=== PATIENT | female | born 1935 | race Asian ===

== ENCOUNTER → 2023-11-28 15:01 | Outpatient (REF) | payer OTHER, SELFPAY | LOC: HWRAD 15:01 | PROVIDERS: ATTENDING PHYSICIAN Nurse Practitioner Gerontology | DX: R91.1 Solitary pulmonary nodule (principal) | CPT/HCPCS: 71250 ==

== ENCOUNTER 2024-02-18 09:41 | Emergency (ER) | payer OTHER, SELFPAY ==
[2024-02-18 09:44] VITALS: BP 152/71; BMI 26.5
[2024-02-18 10:00] VITALS: BP 120/57
--- NOTE | 2024-02-18 10:07 | ED.GENMED ---
History of Present Illness
General
Chief Complaint: Fall
Time Seen by Provider: 02/18/24 09:42
Travel History
Have you had any contact with someone who has COVID-19?: No
Do you have any symptoms of coronavirus? Fever > 100 degrees, chills, cough, shortness of breath, sore throat, loss of taste or smell, muscle aches, or headache?: No
History of Present Illness
History of Present Illness:
88-year-old female presents to the emergency department via EMS from [place] for evaluation of a witnessed fall that occurred while at her dining table. She attempted to stand and lost her balance, fell to the ground and landed on her buttocks. No
reported head strike by staff. Patient reports bilateral hip pain at this time. She states she was unable to walk after this occurred she is not on anticoagulants
Past History
Past History
ED Past Medical History: GERD and HTN
ED Past Surgical History: Orthopedic and Other
Social History
Tobacco: Non-smoker
Alcohol: None
Drug: None
Personal:
Living: with family
Employment: Retired
Family History
Family History: Other (Noncontributory)
Review of Systems
Review of Systems
Allergies reviewed?: Yes
All Other Systems: ROS reviewed and negative except as documented in HPI and ROS
Phy Exam
Physical Exam
Physical Exam:
GEN: Well appearing, NAD, WDWN
HEENT: Oral mucosa moist, no scleral icterus, no nasal congestion
Cardiac: Regular rate
Lung: No respiratory distress, no tachypnea
MSK: No gross deformity or injuries. Mild tenderness to bilateral hips, normal range of motion bilaterally
Skin: Good color, no pallor or jaundice, no rashes
Neuro: AO x3; CN II-XII grossly intact. BUE strength 5/5 in all tran, sensation intact and symmetric. BLE strength 5/5 in all tran, sensation intact and symmetric
Psych: Calm, cooperative
Course
Orders/Labs/Results
Orders:
Orders
02/18/24 09:46
CR Hips KATHARINA w/wo Pel Min 5 Vw* Urgent
Reason For Exam: fall bilat hip pain
Include a pelvis x-ray?: Yes
02/18/24 09:52
Complete Blood Count/With Diff Urgent
Comprehensive Metabolic Panel Urgent
02/18/24 12:07
CT Head W/o Iv Contrast Urgent
Comment:
Reason For Exam: fall head strike
Abnormal Lab Results
02/18/24
09:52
RBC 3.81 L 10^6/uL
(4.20-5.40)
Hgb 10.9 L g/dL
(12.0-16.0)
Hct 32.6 L %
(37.0-47.0)
RDW 14.6 H %
(11.5-14.5)
Chloride 110 H mmol/L
(98-107)
BUN 26 H mg/dl
(7-17)
Creatinine 1.4 H mg/dL
(0.6-1.0)
02/18/24 09:52
02/18/24 09:52
Vital Signs
Initial and Last Documented VS:
Initial Vital Signs
Temp Pulse Resp BP Pulse Ox
97.6 F 79 22 152/71 98
02/18/24 09:44 02/18/24 09:44 02/18/24 09:44 02/18/24 09:44 02/18/24 09:44
Last Documented Vital Signs
Temp Pulse Resp BP Pulse Ox
97.6 F 67 18 120/55 97
02/18/24 09:44 02/18/24 11:15 02/18/24 11:15 02/18/24 11:00 02/18/24 11:15
MDM/Problems Addressed
MDM/Problems Addressed:
Imaging reveals no evidence of fracture of the hip or pelvis and CT of the head was obtained due to her advanced age showing no evidence for intracranial hemorrhage. It was reported by her drug safety specialist that there was a mild head strike thus prompting
initial CT. Discharged in stable condition
*Critical Care Note
Total Time (30-74mins, 75-104mins- exclusive of procedures): Not Applicable
ED Attending Note
-
Portions of this chart may have been created with voice recognition software.� Occasional wrong word or��sound alike� substitutions may have occurred due to the inherent limitations of voice recognition software.
Discharge Plan
Departure
Patient Disposition: Home (Routine Discharge)
Date of Disposition: 02/18/24
Time of Disposition: 14:18
Patient with high blood pressure during this ER visit?: No
Discharge Problem:
Fall
Instructions: Preventing Falls ED
Prescriptions:
No Action
gabapentin 100 MG capsule
100 mg PO QPM
losartan [Cozaar] 100 MG tablet
100 mg PO DAILY
multivitamin with folic acid [Tab-A-Ayo] 1 TABLET tablet
1 tab PO DAILY
magnesium oxide 250 MG tablet
250 mg PO DAILY
PreserVision AREDS 1 CAP capsule
1 cap PO BID
pantoprazole 40 MG tablet,delayed release (DR/EC)
40 mg PO BID Qty: 60 0RF
budesonide 32 mcg/actuation [place],Non-Aerosol
1 spray INTRANASAL DAILY
Rx Instructions:
administer into each nostril
sucralfate [Carafate] 1 gram Tablet
1 g PO ACHS
fexofenadine 180 mg Tablet
180 mg PO DAILY
ondansetron 4 mg Tablet,Disintegrating
4 mg PO Q4HPRN PRN (Reason: nausea)
calcium citrate 200 mg (950 mg) Tablet
400 mg PO DAILY
Biofreeze (menthol) 4 % Gel
1 applic TOPICAL QIDPRN PRN (Reason: onto skin)
Referrals:
Devyn Quintero PA-C [Family Provider] -
Interventions
Interventions:
*Risk Screen - Suicide Last Done: 02/18/24 09:44
*General Assessment Last Done: 02/18/24 09:44
*Neglect/Abuse Screening Last Done: 02/18/24 09:44
ED- Fall Risk Assessment Last Done: 02/18/24 09:44
*ED COVID-19 Vaccine History Last Done: 02/18/24 09:44
ED-Musculoskeletal Assessment Last Done: 02/18/24 09:44
ED- Neurological Assessment Last Done: 02/18/24 09:44
ED-Skin Assessment Last Done: 02/18/24 09:44
Discharge Date and Time
Print Language: [place]
[2024-02-18 10:12] LABS: % Basophils 0.9 % (0-2); % Eosinophils 3.1 % (0-6); % Immature Granulocytes 0.4 % (0-0.5); % Lymphocytes 23.3 % (20.5-51.1); % Monocytes 6.9 % (1.7-9.3); % Neutrophils 65.4 % (42.2-75.2); Absolute Basophils 0.1 10^3/uL (0-0.2); Absolute Eosinophils 0.2 10^3/uL (0-0.7); Absolute Lymphocytes 1.3 10^3/uL (1.2-3.4); Absolute Monocytes 0.4 10^3/uL (0.1-0.6); Absolute Neutrophils 3.6 10^3/uL (1.4-6.5); Hematocrit 32.6 % (37.0-47.0); Hemoglobin 10.9 g/dL (12.0-16.0); Mean Corp Hgb Conc. 33.4 g/dL (33.0-37.0); Mean Corpuscular Hgb 28.6 pg (27.0-31.0); Mean Corpuscular Volume 85.6 fL (81.0-99.0); Mean Platelet Volume 9.5 fL (7.4-10.4); Nucleated Red Blood Cells % 0 %; Platelet Count 190 10^3/uL (130-400); Red Blood Cell Count 3.81 10^6/uL (4.20-5.40); Red Cell Dist. Width 14.6 % (11.5-14.5); White Blood Cell Count 5.5 10^3/uL (4.8-10.8)
[2024-02-18 10:15] LABS: ALT (SGPT) 21 U/L (0-35); AST (SGOT) 34 U/L (14-36); Albumin 3.6 g/dl (3.5-5.0); Alkaline Phosphatase 66 U/L (38-126); Blood Urea Nitrogen 26 mg/dl (7-17); Calcium 8.9 mg/dl (8.4-10.2); Carbon Dioxide 26 mmol/L (22-30); Chloride 110 mmol/L (98-107); Estimated Creatinine Clearance 18 ml/min; Glucose 77 mg/dl (70-99); Potassium 4.5 mmol/L (3.5-5.1); Sodium 142 mmol/L (135-145); Total Bilirubin 0.4 mg/dl (0.2-1.3); Total Protein 6.6 g/dl (6.3-8.2); eGFR 36.19
[2024-02-18 11:00] VITALS: BP 120/55
--- NOTE | 2024-02-18 11:52 | EDRN ---
per the provider Cornelio MEYER's request the pt was ambulated around the unit and the pt was able to ambulate independently without difficulty and without complaints of pain
[2024-02-18 12:30] VITALS: BP 115/71
--- NOTE | 2024-02-18 14:00 | EDRN ---
this RN offered the pt food and drink and the pt stated that she was hungry, this RN provided the pt with an ER lunch box, the pt ate all of her food, the pt then asked this nurse if she could get dressed into the clothes that she came to the ER
with, this RN stated that she could and the pt was able to get dressed independently, the pt can also ambulate to the bathroom and back to the stretcher independently with no issues, the pt is resting in stretcher in the lowest position, side rails
up x2, call trujillo within reach, HOB elevated, will continue to monitor the pt closely
[2024-02-18 15:00] VITALS: BP 126/85
--- NOTE | 2024-02-18 16:00 | EDRN ---
the pt is resting in stretcher in the lowest position, side rails up x2, call trujillo within reach, HOB elevated, no s/s of distress, no c/o pain, the pt has been ringing the call trujillo to notify this RN that she needs to use the bathroom, awaiting
transport for the pt to take the pt back to [facility]
[2024-02-18 18:14] VITALS: BP 136/71
--- NOTE | 2024-02-18 18:18 | EDRN ---
this RN called Estela at [phone] and gave verbal report and notified the facility that the pt was going to be sent back
--- NOTE | 2024-02-18 19:10 | EDRN ---
this RN gave verbal report to Acute Care transport
== END 2024-02-18 19:11 | disposition home or self-care (01) ==
LOC: EMR 09:41
PROVIDERS: Physician Assistant; EMERGENCY PHYSICIAN Emergency Medicine
DX: M25.552 Pain in left hip (principal); M25.551 Pain in right hip; R26.2 Difficulty in walking, not elsewhere classified; W19.XXXA Unspecified fall, initial encounter; I10 Essential (primary) hypertension; K21.9 Gastro-esophageal reflux disease without esophagitis; Z88.1 Allergy status to other antibiotic agents; Z88.0 Allergy status to penicillin; Z88.8 Allergy status to other drugs, medicaments and biological substances; Z91.018 Allergy to other foods; Z91.048 Other nonmedicinal substance allergy status
CPT/HCPCS: 99284; 70450; 73523; 80053; 85025

== ENCOUNTER 2024-09-26 09:28 | Emergency (ER) | payer OTHER, SELFPAY ==
[2024-09-26 09:41] VITALS: BP 138/96
--- NOTE | 2024-09-26 10:41 | ED.GENMED ---
History of Present Illness
General
Chief Complaint: Fall
Source: patient
Exam Limitations: none
Time Seen by Provider: 09/26/24 10:25
History of Present Illness
History of Present Illness:
88yoF with a history of hypertension, hyperlipidemia, dementia, and osteoporosis presenting via EMS for evaluation after a fall. Patient lives at [facility] in an apartment by herself. She was walking back to her room this morning and she fell backwards
striking her head. She denies any loss of consciousness. She is unsure what caused her to fall. She denies any prodromal dizziness. She is presenting with a headache and a scalp hematoma. She has no other complaints currently. She is not taking any
blood thinners. Last ED visit was in February 2024 for a fall.
Past History
Past History
ED Past Medical History: GERD and HTN
ED Past Surgical History: Orthopedic and Other
Social History
Tobacco: Non-smoker
Alcohol: None
Drug: None
Personal:
Living: with family
Employment: Retired
Family History
Family History: Other (Noncontributory)
Phy Exam
General Physical Exam
General Presentation: well appearing and no apparent distress
General age: appears stated age
General Skin: warm and dry
General Habitus: normal and elderly
General Mental: alert
ENT Exam
ENT Exam: TM's normal
Additional ENT: Small hematoma at occiput. No cervical spine tenderness
Eye Exam
Eye Exam: PERRL
Pulmonary Exam
Pulmonary Exam: lungs clear, no respiratory distress, no rales, no crackles and no rhonchi
Gastrointestinal Exam
Gastrointestinal Exam: non tender, soft and non distended
Neurological Exam
Neurological Exam: alert
[place] Coma Scale
Eye Opening: Spontaneous
Verbal Response: Oriented
Motor Response: Obeys Commands
GCS Total Score: 15
Skin Exam
Skin Exam: normal color and warm/dry
Psychiatric Exam
Psychiatric Exam: normal mood/affect
Course
Orders/Labs/Results
Orders:
Orders
09/26/24 09:43
CT Cervical Spine W/o Iv Contr Urgent
Comment:
Reason For Exam: fall
CT Head W/o Iv Contrast Urgent
Comment:
Reason For Exam: fall
09/26/24 10:40
Case Management Consult ONCE
Case Management Consult: Discharge Planning
Pt Eval And Treat Urgent
Activity Level: Out of Bed- Ad Ada
09/26/24 12:02
Walker [Treatment- Walker] ONCE
Vital Signs
Initial and Last Documented VS:
Initial Vital Signs
Temp Pulse Resp BP Pulse Ox
98.8 F 74 19 138/96 98
09/26/24 09:41 09/26/24 09:41 09/26/24 09:41 09/26/24 09:41 09/26/24 09:41
Last Documented Vital Signs
Temp Pulse Resp BP Pulse Ox
98.8 F 72 15 190/93 100
09/26/24 09:41 09/26/24 13:16 09/26/24 13:16 09/26/24 13:16 09/26/24 13:16
MDM/Problems Addressed
Differential Diagnosis Includes:
88yoF here after a fall. Fell backwards striking head. No LOC. C/o headache. No thinners. VSS. She is well appearing in no distress. There is a small occipital hematoma. No other injuries seen on exam. Differential diagnosis includes but is not
limited to: closed head injury, concussion, skull fracture, intracranial hemorrhage
Initial ED plan: CT head and cervical spine ordered in triage. Will consult PT and case management.
*Critical Care Note
Total Time (30-74mins, 75-104mins- exclusive of procedures): Not Applicable
Update Note
Update Note:
Imaging negative for traumatic injuries. PT recommended short term rehab vs. outpatient PT and discharging with walker. Patient has a hx of dementia and is unable to make her own medical decisions. Case management contacted her guardian. Decision
made to discharge patient back to [facility]. They are able to do PT at the facility. She was provided with a walker and was discharged in stable condition.
ED Attending Note
-
Portions of this chart may have been created with voice recognition software.� Occasional wrong word or��sound alike� substitutions may have occurred due to the inherent limitations of voice recognition software.
Discharge Plan
Departure
Patient Disposition: Home (Routine Discharge)
Date of Disposition: 09/26/24
Time of Disposition: 15:12
Patient with high blood pressure during this ER visit?: Yes
Discharge Problem:
Ground-level fall, Closed head injury
Instructions: Fall Prevention for Older Adults
Prescriptions:
No Action
gabapentin 100 MG capsule
100 mg PO QPM
losartan [Cozaar] 100 MG tablet
100 mg PO DAILY
multivitamin with folic acid [Tab-A-Ayo] 1 TABLET tablet
1 tab PO DAILY
magnesium oxide 250 MG tablet
250 mg PO DAILY
PreserVision AREDS 1 CAP capsule
1 cap PO BID
pantoprazole 40 MG tablet,delayed release (DR/EC)
40 mg PO BID Qty: 60 0RF
budesonide 32 mcg/actuation [place],Non-Aerosol
1 spray INTRANASAL DAILY
Rx Instructions:
administer into each nostril
sucralfate [Carafate] 1 gram Tablet
1 g PO ACHS
fexofenadine 180 mg Tablet
180 mg PO DAILY
ondansetron 4 mg Tablet,Disintegrating
4 mg PO Q4HPRN PRN (Reason: nausea)
calcium citrate 200 mg (950 mg) Tablet
400 mg PO DAILY
Biofreeze (menthol) 4 % Gel
1 applic TOPICAL QIDPRN PRN (Reason: onto skin)
Referrals:
Fallon Carolina, [Family Provider] -
Activity Restrictions/Additional Instructions:
Use walker to help prevent falls and follow-up with your family doctor. Return to the ER with any worsening symptoms or recurrent falls.
Interventions
Interventions:
*Risk Screen - Suicide Last Done: 09/26/24 09:41
*General Assessment Last Done: 09/26/24 09:41
*Neglect/Abuse Screening Last Done: 09/26/24 09:41
ED- Fall Risk Assessment Last Done: 09/26/24 10:47
*Nursing Disposition Last Done: 09/26/24 16:13
ED-Musculoskeletal Assessment Last Done: 09/26/24 10:47
ED- Neurological Assessment Last Done: 09/26/24 10:47
ED-Skin Assessment Last Done: 09/26/24 10:47
Discharge Date and Time
Discharge Date/Time: 09/26/24 16:14
Print Language: PORTUGUESE
[2024-09-26 13:16] VITALS: BP 190/93
--- NOTE | 2024-09-26 15:08 | CM ---
Initial Assessment and Caes Management Consult completed via phone with patient's Guardian, Ct
Patient resides at [facility]
Guardian reported that patient has Dementia; requires assistance with personal care; has a home health aid Monday - Monday in the afternoon; did not use a device with ambulation at baseline
PT recommended Home PT vs. Rehab; CM spoke with [facility] and reported that PT could be provided at the facility; patient needs a Rolling Walker when
Delia MEEYR, in the ED, notified and will provide script for PT to give patient a RW
Guardian reported that [facility] will transport patient back to [facility]
Plan: Discharge to Assisted Living facility
== END 2024-09-26 16:14 ==
LOC: EMR 09:28
PROVIDERS: EMERGENCY PHYSICIAN Emergency Medicine; FAMILY PHYSICIAN Hospitalist
DX: S00.03XA Contusion of scalp, initial encounter (principal); W18.30XA Fall on same level, unspecified, initial encounter; I10 Essential (primary) hypertension; K21.9 Gastro-esophageal reflux disease without esophagitis; E78.5 Hyperlipidemia, unspecified; F03.90 Unspecified dementia, unspecified severity, without behavioral disturbance, psychotic disturbance, mood disturbance, and anxiety
CPT/HCPCS: 99284; 70450; 72125